=== PATIENT | female | born 1970 | race Two or more races ===

== ENCOUNTER 2018-05-16 12:27 | Emergency (ER) | payer SELFPAY ==
[~2018-05-16] VITALS: Ht 162.6 cm; Wt 91.7 kg
[2018-05-16 12:31] VITALS: BP 150/101
== END 2018-05-16 13:58 | disposition home or self-care (01) ==
LOC: ED 13:14
DX: L24.5 Irritant contact dermatitis due to other chemical products (principal); F17.200 Nicotine dependence, unspecified, uncomplicated
CPT/HCPCS: 99283